=== PATIENT | male | born 1970 | race Hispanic/Latino ===

== ENCOUNTER 2016-11-15 15:09 | Emergency (ER) | payer SELFPAY ==
[2016-11-15 15:28] VITALS: BP 125/93
[2016-11-15 16:00] LABS: Urine Drugs of Abuse Note Disclamer
[2016-11-15 16:03] LABS: Hematocrit 51.3 % (35.5-45.6); Mean Corpuscular HGB Conc 33 % (32-34); Mean Corpuscular Hemoglobin 35 pg (28-32); Mean Corpuscular Volume 106 fl (84-94); Red Blood Count 4.83 M/mm3 (3.65-5.03); Red Cell Distribution Width 14.8 % (13.2-15.2); White Blood Count 6.7 K/mm3 (4.5-11.0)
[2016-11-15 16:20] LABS: Bilirubin,Urine NEG (Negative); Blood,Urine SM (Negative); Ketones,Urine NEG (Negative); Leukocyte Esterase,Urine NEG (Negative); Nitrite,Urine NEG (Negative); Protein,Urine <15 mg/dL mg/dL (Negative); Urobilinogen,Urine < 2.0 mg/dL (<2.0)
[2016-11-15 16:35] LABS: Anion Gap 21 mmol/L; BUN/Creatinine Ratio 11.42; Blood Urea Nitrogen 8 mg/dL (9-20); Calcium 9.3 mg/dL (8.4-10.2); Carbon Dioxide 28 mmol/L (22-30); Chloride 100.9 mmol/L (98-107); Glucose 118 mg/dL (75-100); Potassium 3.8 mmol/L (3.6-5.0); Sodium 146 mmol/L (137-145)
[2016-11-15 16:51] LABS: Blastocytes % (Manual) 0 %; RBC Morphology Normal
[2016-11-15 16:53] LABS: Diff Status Complete; Platelet Estimate Appears Decreased
[2016-11-15 17:00] LABS: Platelet Count 95 K/mm3 (140-440)
--- NOTE | 2016-11-20 19:35 | ED Elopement Review ---
ED Pt Elopement review - Results review Lab results: Laboratory Tests 11/15/16 11/15/16 11/15/16 15:38 15:38 15:38 WBC 6.7 RBC 4.83 Hgb 17.0 H Hct 51.3 H MCV 106 H MCH 35 H MCHC 33 RDW 14.8 Plt Count 95 L [place] % (Auto) [place] Add Manual Diff Complete Total Counted 100 Seg Neutrophils % [place] Seg Neuts % (Manual) 28.0 L Band Neutrophils % 4.0 Lymphocytes % (Manual) 49.0 H Reactive Lymphs % (Man) 1.0 Monocytes % (Manual) 13.0 H Eosinophils % (Manual) 3.0 Basophils % (Manual) 1.0 Metamyelocytes % 1.0 Myelocytes % 0 Promyelocytes % 0 Blast Cells % 0 Nucleated RBC % Not Reportable Seg Neutrophils # Man 1.9 Band Neutrophils # 0.3 Lymphocytes # (Manual) 3.3 Abs React Lymphs (Man) 0.1 Monocytes # (Manual) 0.9 H Eosinophils # (Manual) 0.2 Basophils # (Manual) 0.1 Metamyelocytes # 0.1 Myelocytes # 0.0 Promyelocytes # 0.0 Blast Cells # 0.0 WBC Morphology Not Reportable Hypersegmented Neuts Not Reportable Hyposegmented Neuts Not Reportable Hypogranular Neuts Not Reportable Smudge Cells Not Reportable Toxic Granulation Not Reportable Toxic Vacuolation Not Reportable Dohle Bodies Not Reportable Pelger-Huet Anomaly Not Reportable Deb Rods Not Reportable Platelet Estimate Appears decreased Clumped Platelets Not Reportable Plt Clumps, EDTA Not Reportable Large Platelets Not Reportable Giant Platelets Not Reportable Platelet Satelliting Not Reportable Plt Morphology Comment Not Reportable RBC Morphology Normal Dimorphic RBCs Not Reportable Polychromasia Not Reportable Hypochromasia Not Reportable Poikilocytosis Not Reportable Anisocytosis Not Reportable Microcytosis Not Reportable Macrocytosis Not Reportable Spherocytes Not Reportable Pappenheimer Bodies Not Reportable Sickle Cells Not Reportable Target Cells Not Reportable Tear Drop Cells Not Reportable Ovalocytes Not Reportable Helmet Cells Not Reportable [place] Bodies Not Reportable [place] Rings Not Reportable [place] Cells Not Reportable Bite Cells Not Reportable Crenated Cell Not Reportable Elliptocytes Not Reportable Acanthocytes (Spur) Not Reportable Rouleaux Not Reportable Hemoglobin C Crystals Not Reportable Schistocytes Not Reportable Malaria parasites Not Reportable Harish Bodies Not Reportable Hem Pathologist Commnt No Sodium 146 H Potassium 3.8 Chloride 100.9 Carbon Dioxide 28 Anion Gap 21 BUN 8 L Creatinine 0.7 L Estimated GFR > 60 BUN/Creatinine Ratio 11.42 Glucose 118 H Calcium 9.3 Urine Color Urine Turbidity Urine pH Ur Specific [place] Urine Protein Urine Glucose (UA) Urine Ketones Urine Blood Urine Nitrite Urine Bilirubin Urine Urobilinogen Ur Leukocyte Esterase Urine WBC (Auto) Urine RBC (Auto) U Epithel Cells (Auto) Urine Opiates Screen Urine Methadone Screen Ur Barbiturates Screen Ur Phencyclidine Scrn Ur Amphetamines Screen U Benzodiazepines Scrn Urine Cocaine Screen U Marijuana (THC) Screen Drugs of Abuse Note Plasma/Serum Alcohol 0.49 H 11/15/16 11/15/16 15:46 15:46 WBC RBC Hgb Hct MCV MCH MCHC RDW Plt Count [place] % (Auto) Add Manual Diff Total Counted Seg Neutrophils % Seg Neuts % (Manual) Band Neutrophils % Lymphocytes % (Manual) Reactive Lymphs % (Man) Monocytes % (Manual) Eosinophils % (Manual) Basophils % (Manual) Metamyelocytes % Myelocytes % Promyelocytes % Blast Cells % Nucleated RBC % Seg Neutrophils # Man Band Neutrophils # Lymphocytes # (Manual) Abs React Lymphs (Man) Monocytes # (Manual) Eosinophils # (Manual) Basophils # (Manual) Metamyelocytes # Myelocytes # Promyelocytes # Blast Cells # WBC Morphology Hypersegmented Neuts Hyposegmented Neuts Hypogranular Neuts Smudge Cells Toxic Granulation Toxic Vacuolation Dohle Bodies Pelger-Huet Anomaly Deb Rods Platelet Estimate Clumped Platelets Plt Clumps, EDTA Large Platelets Giant Platelets Platelet Satelliting Plt Morphology Comment RBC Morphology Dimorphic RBCs Polychromasia Hypochromasia Poikilocytosis Anisocytosis Microcytosis Macrocytosis Spherocytes Pappenheimer Bodies Sickle Cells Target Cells Tear Drop Cells Ovalocytes Helmet Cells [place] Bodies [place] Rings [place] Cells Bite Cells Crenated Cell Elliptocytes Acanthocytes (Spur) Rouleaux Hemoglobin C Crystals Schistocytes Malaria parasites Harish Bodies Hem Pathologist Commnt Sodium Potassium Chloride Carbon Dioxide Anion Gap BUN Creatinine Estimated GFR BUN/Creatinine Ratio Glucose Calcium Urine Color Straw Urine Turbidity Clear Urine pH 7.0 Ur Specific [place] 1.004 Urine Protein <15 mg/dl Urine Glucose (UA) Neg Urine Ketones Neg Urine Blood Sm Urine Nitrite Neg Urine Bilirubin Neg Urine Urobilinogen < 2.0 Ur Leukocyte Esterase Neg Urine WBC (Auto) 0.0 Urine RBC (Auto) 1.0 U Epithel Cells (Auto) < 1.0 Urine Opiates Screen Presumptive negative Urine Methadone Screen Presumptive negative Ur Barbiturates Screen Presumptive negative Ur Phencyclidine Scrn Presumptive negative Ur Amphetamines Screen Presumptive negative U Benzodiazepines Scrn Presumptive negative Urine Cocaine Screen Presumptive negative U Marijuana (THC) Screen Presumptive negative Drugs of Abuse Note Disclamer Plasma/Serum Alcohol - Call Back decision Pt Call Back Decision: No action required
== END 2016-11-15 19:35 | disposition left against medical advice (07) ==
LOC: ED 15:09
DX: F10.129 Alcohol abuse with intoxication, unspecified (principal); R07.9 Chest pain, unspecified; Z53.21 Procedure and treatment not carried out due to patient leaving prior to being seen by health care provider
CPT/HCPCS: 36415; 80048; 80307; 81001; 85007; 85025; 93005; 93010; G0480; 80320

== ENCOUNTER 2016-11-16 13:36 | Emergency (ER) | payer SELFPAY ==
[2016-11-16 14:28] LABS: Urine Drugs of Abuse Note Disclamer
[2016-11-16 14:30] LABS: Hematocrit 46.5 % (35.5-45.6); Hemoglobin 15.5 gm/dl (11.8-15.2); Mean Corpuscular HGB Conc 33 % (32-34); Mean Corpuscular Hemoglobin 35 pg (28-32); Mean Corpuscular Volume 106 fl (84-94); Red Blood Count 4.39 M/mm3 (3.65-5.03); Red Cell Distribution Width 14.7 % (13.2-15.2); White Blood Count 5.1 K/mm3 (4.5-11.0)
[2016-11-16 14:39] LABS: Platelet Count 79 K/mm3 (140-440)
[2016-11-16 14:48] LABS: Bilirubin,Urine NEG (Negative); Blood,Urine SM (Negative); Ketones,Urine NEG (Negative); Leukocyte Esterase,Urine NEG (Negative); Nitrite,Urine NEG (Negative); Protein,Urine <15 mg/dL mg/dL (Negative); Urobilinogen,Urine < 2.0 mg/dL (<2.0); WBC,Urine < 1.0 /HPF (0.0-6.0)
[2016-11-16 14:48] LABS: Anion Gap 19 mmol/L; BUN/Creatinine Ratio 11.25; Blood Urea Nitrogen 9 mg/dL (9-20); Calcium 9.5 mg/dL (8.4-10.2); Carbon Dioxide 28 mmol/L (22-30); Chloride 100.2 mmol/L (98-107); Glucose 93 mg/dL (75-100); Potassium 4.3 mmol/L (3.6-5.0); Sodium 143 mmol/L (137-145)
[2016-11-16 16:55] LABS: Basophils % (Manual) 0 % (0.0-1.8); Blastocytes % (Manual) 0 %
[2016-11-16 16:56] LABS: Platelet Estimate Appears Decreased
[2016-11-16 16:57] LABS: Anisocytosis 1+
[2016-11-16 16:58] LABS: Diff Status Complete
--- NOTE | 2016-11-16 19:41 | Emergency Department Report ---
ED Psych HPI - General Chief Complaint: Alcohol Stated Complaint: ALCOHOL ABUSE Time Seen by Provider: 11/16/16 17:56 Source: patient Mode of arrival: Ambulatory - History of Present Illness MD Complaint: other (wants alcohol detox) Associated Psychiatric Symptoms: none History of same: Yes Quality: constant Improves With: none Worsens With: none Context: recent alcohol abuse Associated Symptoms: denies: confusion, headache, shortness of breath, nausea, vomiting, syncope, insomnia Treatments Prior to Arrival: none - Related Data Previous Rx's Medication Instructions Recorded Last Taken Type chlordiazePOXIDE [Librium] 25 mg PO Q8H #30 capsule 11/16/16 Unknown Rx Allergies Allergy/AdvReac Type Severity Reaction Status Date / Time No Known Allergies Allergy Unverified 11/15/16 15:23 ED Review of Systems ROS: Stated complaint: ALCOHOL ABUSE Other details as noted in HPI Comment: All other systems reviewed and negative ED Past Medical Hx - Past Medical History Previous Medical History?: Yes Hx Psychiatric Treatment: Yes (ETOH abuse, Alcoholic for 6 years) - Surgical History Past Surgical History?: No - Social History Smoking Status: Current Every Day Smoker Substance Use Type: Alcohol - Medications Home Medications: Home Medications Medication Instructions Recorded Confirmed Last Taken Type chlordiazePOXIDE [Librium] 25 mg PO Q8H #30 capsule 11/16/16 Unknown Rx ED Physical Exam - General Limitations: No Limitations General appearance: alert, in no apparent distress - Head Head exam: Present: atraumatic, normocephalic - Eye Eye exam: Present: normal appearance - ENT ENT exam: Present: mucous membranes moist - Neck Neck exam: Present: normal inspection - Respiratory Respiratory exam: Present: normal lung sounds bilaterally. Absent: respiratory distress - Cardiovascular Cardiovascular Exam: Present: regular rate, normal rhythm. Absent: systolic murmur, diastolic murmur, rubs, gallop - GI/Abdominal GI/Abdominal exam: Present: soft, normal bowel sounds - Rectal Rectal exam: Present: deferred - Extremities Exam Extremities exam: Present: normal inspection - Back Exam Back exam: Present: normal inspection - Neurological Exam Neurological exam: Present: alert, oriented X3 - Psychiatric Psychiatric exam: Present: normal affect, normal mood - Skin Skin exam: Present: warm, dry, intact, normal color. Absent: rash ED Course Vital Signs 11/16/16 11/16/16 13:55 19:06 Temperature 97.8 F Pulse Rate 85 Respiratory 16 18 Rate Blood Pressure 143/98 O2 Sat by Pulse 95 Oximetry ED Medical Decision Making - Lab Data Result diagrams: 11/16/16 14:17 11/16/16 14:17 - Medical Decision Making will dc after psych does assessment for outpatient detox , will also give prescription for librium Critical care attestation.: If time is entered above; I have spent that time in minutes in the direct care of this critically ill patient, excluding procedure time. ED Disposition Clinical Impression: Alcohol abuse Disposition: DISCHARGED TO HOME OR SELFCARE Is pt being admited?: No Does the pt Need Aspirin: No Condition: Good Instructions: Abuse of Alcohol (ED) Prescriptions: chlordiazePOXIDE [Librium] 25 mg PO Q8H #30 capsule Time of Disposition: 19:41
[2016-11-16 21:03] VITALS: BP 124/71
== END 2016-11-16 22:05 | disposition home or self-care (01) ==
LOC: ED 13:36
DX: F10.10 Alcohol abuse, uncomplicated (principal); F17.200 Nicotine dependence, unspecified, uncomplicated
CPT/HCPCS: 36415; 80048; 80307; 81001; 85007; 85025; 99284; G0480; 80320

== ENCOUNTER 2021-02-21 10:02 | Emergency (ER) | payer SELFPAY ==
[2021-02-21 10:16] VITALS: BP 155/87
== END 2021-02-21 12:05 | disposition left against medical advice (07) ==
LOC: ED 10:02
DX: R07.0 Pain in throat (principal); Z53.21 Procedure and treatment not carried out due to patient leaving prior to being seen by health care provider

== ENCOUNTER 2021-05-30 11:32 | Emergency (ER) | payer SELFPAY ==
[2021-05-30] MEDS ORDERED: LORazepam 2 MG TAB PO PRN ×2 (12:09)
[2021-05-30] MEDS ORDERED: chlordiazePOXIDE 25 MG CAP PO PRN ×2 (12:09)
[2021-05-30] MEDS ORDERED: diphenhydrAMINE 25 MG CAP PO PRN (12:09)
[2021-05-30] MEDS ORDERED: HALOPERIDOL LACTATE 5 MG/1 ML INJ IM PRN (12:09)
[2021-05-30] MEDS ORDERED: ONDANSETRON 4 MG ODT TAB PO PRN (12:09)
[2021-05-30] MEDS ORDERED: LORazepam 2 MG/ML VIAL IM PRN (12:09)
--- NOTE | 2021-05-30 12:11 | Emergency Department Report ---
ED General Adult HPI - General Chief complaint: Psych Stated complaint: SUICIDAL IDEATION Time Seen by Provider: 05/30/21 11:44 Source: patient, police, RN notes reviewed Mode of arrival: Ambulatory Limitations: Other (Alcohol intoxication) - History of Present Illness Initial comments: The patient is a 50-year-old gentleman. He is not known to myself previously. He is brought to the hospital by police department. History obtained by speaking to patient, and reviewing collateral information obtained from nursing team. Apparently, this patient got drunk, consume alcohol, started having hallucinations, and threatening to kill himself. To me, the patient has no recollection of the event. The patient thinks that he fell. He is not certain. At the moment, he is not homicidal suicidal. He complains of left arm/bicep pain, otherwise denies additional physical pain. He does not know how he got the ecchymosis/black and blue on his left arm. At the moment, he denies headache, neck pain, chest pain, abdominal pain, shortness of breath, vomiting, diarrhea, and hallucinations. Please department do not provide additional history at this time. The patient is intoxicated, and therefore, has difficulty describing the qualitative nature of symptoms, exacerbating factors, relieving factors or aggravating factors Location: left, upper extremity - Related Data Home Medications Medication Instructions Recorded Confirmed Last Taken No Known Home Medications [No 05/30/21 05/30/21 Unknown Reported Home Medications] Allergies Allergy/AdvReac Type Severity Reaction Status Date / Time No Known Allergies Allergy Verified 02/21/21 10:11 ED Review of Systems ROS: Stated complaint: SUICIDAL IDEATION Other details as noted in HPI Comment: Unobtainable due to pts medical conditions (Alcohol intoxication) Respiratory: denies: cough Cardiovascular: denies: chest pain Gastrointestinal: denies: abdominal pain Musculoskeletal: myalgia Psychiatric: as per HPI. denies: homicidal thoughts ED Past Medical Hx - Past Medical History Previous Medical History?: Yes Hx Psychiatric Treatment: Yes (ETOH abuse, Alcoholic for 6 years) - Social History Smoking Status: Unknown if ever smoked Substance Use Type: Alcohol - Medications Home Medications: Home Medications Medication Instructions Recorded Confirmed Last Taken Type No Known Home Medications [No 05/30/21 05/30/21 Unknown History Reported Home Medications] ED Physical Exam - General Limitations: Other (Intoxication) General appearance: appears intoxicated - Head Head exam: Present: atraumatic, normocephalic - Eye Eye exam: Present: normal appearance, EOMI. Absent: nystagmus - ENT ENT exam: Present: normal exam, normal orophraynx, mucous membranes moist, normal external ear exam - Neck Neck exam: Present: normal inspection, full ROM. Absent: tenderness, meningismus - Respiratory Respiratory exam: Present: normal lung sounds bilaterally, other (There is a left lateral thorax ecchymosis). Absent: respiratory distress, wheezes, rales, rhonchi, stridor - Cardiovascular Cardiovascular Exam: Present: regular rate, normal rhythm, normal heart sounds. Absent: bradycardia, tachycardia, irregular rhythm, systolic murmur, diastolic murmur, rubs, gallop - GI/Abdominal GI/Abdominal exam: Present: soft. Absent: distended, tenderness, guarding, rebound, rigid, pulsatile mass - Rectal Rectal exam: Present: deferred - Extremities Exam Extremities exam: Present: full ROM, other (2+ pulses noted in the bilateral upper and lower extremities. There is no palpable cord. negative Homans sign. Muscular compartments are soft. The pelvis is stable.). Absent: normal inspection (There is a left bicep ecchymosis), calf tenderness - Back Exam Back exam: Present: normal inspection. Absent: tenderness, CVA tenderness (R), CVA tenderness (L), paraspinal tenderness, vertebral tenderness - Neurological Exam Neurological exam: Present: altered (Patient is intoxicated. The patient follows commands.), other (No facial droop. Tongue midline. Extraocular movements intact bilaterally. Facial sensation intact to light touch in V1, V2, V3 distribution bilaterally. 5 and a 5 strength in 4 extremities. Sensation intact to light touch in 4 extremities.) - Psychiatric Psychiatric exam: Present: anxious. Absent: homicidal ideation - Skin Skin exam: Present: warm, ecchymosis ED Course Vital Signs 05/30/21 05/30/21 05/30/21 11:34 11:35 11:51 Temperature 98.6 F Pulse Rate 86 89 Respiratory 16 18 Rate Blood Pressure 126/96 O2 Sat by Pulse 95 96 100 Oximetry - Reevaluation(s) Reevaluation #1: 05/30/21 13:00 Differential diagnosis, including but not limited to: Alcohol intoxication, alcohol induced mood disorder, intracranial injury, cervical spine injury, electrolyte derangement, pneumonia, left bicep/arm ecchymosis Assessment and plan: 50-year-old gentleman, who was afebrile, with reassuring vital signs, who was intoxicated. Patient is placed on 2013 status for intoxication. Diagnostic laboratory studies ordered, to exclude time sensitive toxicologic ingestion. X-ray of the chest will be ordered given left arm ecchymosis, and left lateral thorax ecchymosis. He is saturating 100% on room air, and has clear lung sounds. Mental health consultation is requested. Reassess after initial data points. 05/30/21 13:48 Laboratory studies demonstrated evidence of chronic alcoholism. Noncontrast CT scan of the brain and cervical spine pending. Patient has no crackles or rales. I do not suspect CHF clinically. X-ray of the chest was obtained because of left anterior thorax ecchymosis, and to evaluate for posttraumatic sequelae. Potassium supplementation is ordered. 05/30/21 14:04 Contacted patient's , Ms. Heather Christopher; [phone]. She reports that the patient is a chronic alcoholic, and drinks multiple pints a day. He has a ttempted sober living in the past, and has been sober for as long as 38 days. He is not COVID-19 vaccinated, he does not take prescription medications that she is aware of, and he has no known medication allergies. She states that she recently acquired [employer] insurance, and she will reach out to her insurance company and see if she can place Mr. Christopher on her policy, to assist with inpatient detox. I discussed all pertinent findings with the patient's . She verbalized understanding. Leukopenia and thrombocytopenia likely secondary to chronic alcoholism. Transaminitis likely secondary to chronic alcoholism. Ms. Christopher would like to be called back by the psychiatry team after they have made their initial evaluation and recommendations. Holding orders placed. At this point in time, this patient does not appear to have an immediate medical contraindication to psychiatric admission, evaluation, consultation and placement/placement in detox. I anticipate that once the patient eloisa up, if he does not enter DTs or experiences severe withdrawal symptoms, he may elect to be discharged. Ultimate disposition as per the psychiatry team, and also as per patient once he becomes clinically sober. ED Medical Decision Making - Lab Data Result diagrams: 05/30/21 12:24 05/30/21 12:24 Vital Signs 05/30/21 05/30/21 05/30/21 11:34 11:35 11:51 Temperature 98.6 F Pulse Rate 86 89 Respiratory 16 18 Rate Blood Pressure 126/96 O2 Sat by Pulse 95 96 100 Oximetry Lab Results 05/30/21 05/30/21 05/30/21 Range/Units 12:24 12:24 12:24 WBC 3.8 L (4.5-11.0) K/mm3 RBC 4.52 (3.65-5.03) M/mm3 Hgb 15.4 H (11.8-15.2) gm/dl Hct 45.5 (35.5-45.6) % MCV 101 H (84-94) fl MCH 34 H (28-32) pg MCHC 34 (32-34) % RDW 14.6 (13.2-15.2) % Plt Count 95 L (140-440) K/mm3 [place] % (Auto) 18.7 H (0.0-7.3) % Eos % (Auto) 3.6 (0.0-4.3) % [place] # (Auto) 0.7 (0.0-0.8) K/mm3 Eos # (Auto) 0.1 (0.0-0.4) K/mm3 Baso # (Auto) 0.0 (0.0-0.1) K/mm3 Seg Neutrophils % 25.2 L (40.0-70.0) % Seg Neutrophils # 0.9 L (1.8-7.7) K/mm3 PT 12.7 (12.2-14.9) Sec. INR 0.86 L (0.87-1.13) Sodium 146 H (137-145) mmol/L Potassium 3.4 L (3.6-5.0) mmol/L Chloride 106.4 (98-107) mmol/L Carbon Dioxide 22 (22-30) mmol/L Anion Gap 21 mmol/L BUN 8 L (9-20) mg/dL Creatinine 0.8 (0.8-1.3) mg/dL Estimated GFR > 60 ml/min BUN/Creatinine Ratio 10 % Glucose 104 H (75-100) mg/dL Calcium 8.8 (8.4-10.2) mg/dL Magnesium 1.90 (1.7-2.3) mg/dL Total Bilirubin 0.20 (0.1-1.2) mg/dL AST 98 H (5-40) units/L ALT 59 H (7-56) units/L Alkaline Phosphatase 66 (35-129) units/L Total Protein 7.3 (6.3-8.2) g/dL Albumin 4.1 (3.9-5) g/dL Albumin/Globulin Ratio 1.3 % Salicylates (2.8-20.0) mg/dL Acetaminophen (10.0-30.0) ug/mL Plasma/Serum Alcohol (0-0.07) % 05/30/21 05/30/21 05/30/21 Range/Units 12:24 12:24 12:24 WBC (4.5-11.0) K/mm3 RBC (3.65-5.03) M/mm3 Hgb (11.8-15.2) gm/dl Hct (35.5-45.6) % MCV (84-94) fl MCH (28-32) pg MCHC (32-34) % RDW (13.2-15.2) % Plt Count (140-440) K/mm3 [place] % (Auto) (0.0-7.3) % Eos % (Auto) (0.0-4.3) % [place] # (Auto) (0.0-0.8) K/mm3 Eos # (Auto) (0.0-0.4) K/mm3 Baso # (Auto) (0.0-0.1) K/mm3 Seg Neutrophils % (40.0-70.0) % Seg Neutrophils # (1.8-7.7) K/mm3 PT (12.2-14.9) Sec. INR (0.87-1.13) Sodium (137-145) mmol/L Potassium (3.6-5.0) mmol/L Chloride (98-107) mmol/L Carbon Dioxide (22-30) mmol/L Anion Gap mmol/L BUN (9-20) mg/dL Creatinine (0.8-1.3) mg/dL Estimated GFR ml/min BUN/Creatinine Ratio % Glucose (75-100) mg/dL Calcium (8.4-10.2) mg/dL Magnesium (1.7-2.3) mg/dL Total Bilirubin (0.1-1.2) mg/dL AST (5-40) units/L ALT (7-56) units/L Alkaline Phosphatase (35-129) units/L Total Protein (6.3-8.2) g/dL Albumin (3.9-5) g/dL Albumin/Globulin Ratio % Salicylates < 0.3 L (2.8-20.0) mg/dL Acetaminophen 5.0 L (10.0-30.0) ug/mL Plasma/Serum Alcohol 0.44 H (0-0.07) % Vital Signs 05/30/21 05/30/21 05/30/21 11:34 11:35 11:51 Temperature 98.6 F Pulse Rate 86 89 Respiratory 16 18 Rate Blood Pressure 126/96 O2 Sat by Pulse 95 96 100 Oximetry - Radiology Data Radiology results: pending, report reviewed, image reviewed interpreted by me: 1 view x-ray of the chest, interpreted by myself, shows clear lungs, no pneumothorax, unremarkable bony anatomy, no obvious infiltrate XR chest 1V ap INDICATION / CLINICAL INFORMATION: Alcohol Intoxication. COM PARISON: None available. FINDINGS: SUPPORT DEVICES: None. HEART /PULMONARY VASCULATURE: No significant abnormality. LUNGS / PLEURA: Mild diffuse increased interstitial markings. No focal airspace consolidation. No sizable pleural effusion. No pneumothorax. ADDITIONAL FINDINGS: No significant additional findings. IMPRESSION: Probable mild interstitial edema. No focal airspace disease. Signer Name: Brendan Mcnair MD Signed: 05/30/2021 12:06 PM Workstation Name: [email or web address] CT cervical spine wo con INDICATION / CLINICAL INFORMATION: 50 years Male; etoh intox, fall. TECHNIQUE: Axial CT images of the cervical spine were obtained. Sagittal and coronal reformatted images were produced. All CT scans at this location are performed using CT dose reduction for ALARA by means of automated e xposure control. COMPARISON: None available. FINDINGS: POST-SURGICAL CHANGES: None. ALIGNMENT: Straightening of the cervical spine noted, which may be related to patient positioning. VERTEBRAE: No signs of fracture. Vertebral bodies are grossly normal in height throughout. Mild osseous foraminal narrowing seen bilaterally at C6-7 from uncinate hypertrophy and on the left at C5-6. INTRAVERTEBRAL DISCS: Disc space narrowing seen at C5-6 and C6-7 where there is anterior and posterior spondylosis. Mild disc disease seen at these levels. No significant canal stenosis appreciated. PARASPINAL SOFT TISSUES: No significant abnormality. ADDITIONAL FINDINGS: None. IMPRESSION: 1. No signs of acute bony trauma to the cervical spine. Signer Name: Rishabh Null MD, III Signed: 05/30/2021 12:50 PM Workstation Name: [id number] CT head/brain wo con INDICATION / CLINICAL INFORMATION: 50 years Male; Alcohol Intoxication. TECHNIQUE: Routine CT head without contrast. All CT scans at this location are performed using CT dose reduction for ALARA by means of automated exposure control. COMPARISON: None. FINDINGS: BRAIN / INTRACRANIAL CONTENTS: No acute hemorrhage, mass effect, midline shift, hydrocephalus, or acute, large territorial infarct. No signs of significant atrophy or chronic infarct. No significant white matter abnormality seen. CRANIOCERVICAL JUNCTION: No significant abnormality. ORBITS: No significant abnormality of visualized orbits. SINUSES / MASTOIDS: Mucous retention cyst/polyp is seen in the right maxillary antrum. ADDITIONAL FINDINGS: None. IMPRESSION: 1. No focal mass, hemorrhage, hydrocephalus, or acute, large territorial infarct. Signer Name: Rishabh Null MD, III Signed: 05/30/2021 12:46 PM Workstation Name: [employer]- [id number] Critical care attestation.: If time is entered above; I have spent that time in minutes in the direct care of this critically ill patient, excluding procedure time. ED Disposition Clinical Impression: Alcohol intoxication, Fall, Arm bruise, Encounter for behavioral health screening, Hypokalemia, Leukopenia, Thrombocytopenia, Transaminitis, Alcohol de pendence Disposition: 30 STILL A PATIENT Is pt being admited?: No Does the pt Need Aspirin: No Condition: Stable Referrals: PRIMARY CARE, [Primary Care Provider] - 3-5 Days
[2021-05-30 13:04] LABS: Hematocrit 45.5 % (35.5-45.6); Hemoglobin 15.4 gm/dl (11.8-15.2); Mean Corpuscular HGB Conc 34 % (32-34); Mean Corpuscular Volume 101 fl (84-94); Red Blood Count 4.52 M/mm3 (3.65-5.03); Red Cell Distribution Width 14.6 % (13.2-15.2)
[2021-05-30 13:08] LABS: Platelet Count 95 K/mm3 (140-440)
[2021-05-30 13:10] LABS: Eosinophils # (Auto) 0.1 K/mm3 (0.0-0.4); Eosinophils % (Auto) 3.6 % (0.0-4.3); Monocytes # (Auto) 0.7 K/mm3 (0.0-0.8); Monocytes % (Auto) 18.7 % (0.0-7.3)
--- NOTE | 2021-05-30 13:10 | XRay Report ---
XR chest 1V ap INDICATION / CLINICAL INFORMATION: Alcohol Intoxication. COMPARISON: None available. FINDINGS: SUPPORT DEVICES: None. HEART /PULMONARY VASCULATURE: No significant abnormality. LUNGS / PLEURA: Mild diffuse increased interstitial markings. No focal airspace consolidation. No siz able pleural effusion. No pneumothorax. ADDITIONAL FINDINGS: No significant additional findings. IMPRESSION: Probable mild interstitial edema. No focal airspace disease. Signer Name: Brendan Mcnair MD Signed: 05/30/2021 1:06 PM Workstation Name: [id number]
[2021-05-30 13:12] LABS: INR 0.86 (0.87-1.13)
[2021-05-30 13:14] LABS: Alanine Aminotransferase 59 units/L (7-56); Albumin 4.1 g/dL (3.9-5); BUN/Creatinine Ratio 10; Blood Urea Nitrogen 8 mg/dL (9-20); Calcium 8.8 mg/dL (8.4-10.2); Hemolysis Index 9
[2021-05-30] MEDS ORDERED: POTASSIUM CHLORIDE ER 20 MEQ TAB PO ONE ×2 (13:47→16:04)
--- NOTE | 2021-05-30 13:50 | Cat Scan Report ---
CT head/brain wo con INDICATION / CLINICAL INFORMATION: 50 years Male; Alcohol Intoxication. TECHNIQUE: Routine CT head without contrast. All CT scans at this location are performed using CT dos e reduction for ALARA by means of automated exposure control. COMPARISON: None. FINDINGS: BRAIN / INTRACRANIAL CONTENTS: No acute hemorrhage, mass effect, midline shift, hydrocephalus, or acu te, large territorial infarct. No signs of significant atrophy or chronic infarct. No significant whi te matter abnormality seen. CRANIOCERVICAL JUNCTION: No significant abnormality. ORBITS: No significant abnormality of visualized orbits. SINUSES / MASTOIDS: Mucous retention cyst/polyp is seen in the right maxillary antrum. ADDITIONAL FINDINGS: None. IMPRESSION: 1. No focal mass, hemorrhage, hydrocephalus, or acute, large territorial infarct. Signer Name: Rishabh Null MD, III Signed: 05/30/2021 1:46 PM Workstation Name: [id number]
--- NOTE | 2021-05-30 13:54 | Cat Scan Report ---
CT cervical spine wo con INDICATION / CLINICAL INFORMATION: 50 years Male; etoh intox, fall. TECHNIQUE: Axial CT images of the cervical spine were obtained. Sagittal and coronal reformatted images were pr oduced. All CT scans at this location are performed using CT dose reduction for ALARA by means of aut omated exposure control. COMPARISON: None available. FINDINGS: POST-SURGICAL CHANGES: None. ALIGNMENT: Straightening of the cervical spine noted, which may be related to patient positioning. VERTEBRAE: No signs of fracture. Vertebral bodies are grossly normal in height throughout. Mild osseous foraminal narrowing seen bilaterally at C6-7 from uncinate hypertrophy and on the left a t C5-6. INTRAVERTEBRAL DISCS: Disc space narrowing seen at C5-6 and C6-7 where there is anterior and posterio r spondylosis. Mild disc disease seen at these levels. No significant canal stenosis appreciated. PARASPINAL SOFT TISSUES: No significant abnormality. ADDITIONAL FINDINGS: None. IMPRESSION: 1. No signs of acute bony trauma to the cervical spine. Signer Name: Rishabh Null MD, III Signed: 05/30/2021 1:50 PM Workstation Name: [id number]
[2021-05-30] MEDS ORDERED: DEXTROSE 50% IN WATER (25GM) 50 ML VIAL IV PRN (14:09)
[2021-05-30 15:33] LABS: Bilirubin,Urine NEG (Negative); Blood,Urine SM (Negative); Color,Urine Yellow (Yellow); Protein,Urine <15 mg/dL mg/dL (Negative); Urobilinogen,Urine < 2.0 mg/dL (<2.0); WBC,Urine < 1.0 /HPF (0.0-6.0)
[2021-05-30 15:41] LABS: Amphetamine Screen,Urine Negative; Benzodiazepines Screen,Urine Negative; Cannabinoid Screen,Urine Negative; Cocaine Screen,Urine Negative; Methadone Screen,Urine Negative; Opiate Screen,Urine Negative
[2021-05-30 16:15] LABS: Total Cells Counted 100
[2021-05-30 16:17] LABS: Anisocytosis 1+; Platelet Estimate Consistent w Auto; Spherocytes 1+
--- NOTE | 2021-05-31 09:14 | Consultation ---
History of Present Illness - Reason for Consult Consult date: 05/31/21 Reason for consult: ETOH - History of Present Psychiatric Illness The patient was seen today. He is calm and cooperative. He is a/o x 3. He says he came to the hospital because he has a problem with drinking. The patient says he drinks 2 to 3 pints of vodka daily. He says his last drink was maybe 72 hours ago. The patient says he's been to rehab once but it didn't work. He denies seeing a psychiatrist in the past but says he's seen a therapist for marriage counseling. The patient also denies SI/HI. He says "alcohol is my problem." The patient also denies hallucinations of any kind. He also denies being on any psych meds. He denies any problems with his sleep cycle or his appetite. PAST PSYCHIATRIC HISTORY: Diagnoses: ETOH dependence Suicide attempts or Self-harm behavior: Denies Prior psychiatric hospitalizations: Denies Substance Abuse history: ETOH Previous psychiatric medications tried: Denies Outpatient treatment: Denies PAST MEDICAL HISTORY: None reported or document Family Psychiatric History: None reported or documented SOCIAL HISTORY Marital Status: Living Arrangements: with spouse Employment Status: self employed Access to guns/weapons: Denies Education: History of Abuse: Denies Legal History: Denies REVIEW OF SYSTEMS Constitutional: Negative for weight loss ENT: Negative for stridor Respiratory: Negative for cough or hemoptysis All other systems reviewed and are negative MENTAL STATUS EXAMINATION General Appearance and Behavior: Age appropriate, good hygiene, wearing appropriate clothes. calm, cooperative Cooperation: cooperative Psychomotor Behavior: Psychomotor normal Mood: okay Affect and affective range: congruent with stated mood Thought Process: goal directed Thought Content: None Speech: Normal tone and pace Suicidal Ideation: Denies Homicidal Ideation: Denies Hallucinations: Denies Delusions: none elicited Impulse Control: Limited Insight and Judgment: Limited Memory: limited Attention: Attentive Orientation: alert and oriented Assessment and Plan (1) Alcohol Dependence Treatment Plan No prescriptions given at this time Sitter: per primary Medical: per primary Disposition: Do not recommend acute psychiatric inpatient treatment. The patient understands that if SI/HI or any fear of endangerment are to arise he is to seek immediate assistance. The telephone ad taker to give the patient resources for rehab, and further discuss safety plan The patient to abstain from all alcohol He is to follow up with outpatient psych or primary in 7 to 14 days upon discharge Will sign off. Thanks. Case staffed with Dr. Garcia Medications and Allergies Allergies Allergy/AdvReac Type Severity Reaction Status Date / Time No Known Allergies Allergy Verified 02/21/21 10:11 Home Medications Medication Instructions Recorded Confirmed Last Taken Type No Known Home Medications [No 05/30/21 05/30/21 Unknown History Reported Home Medications] Active Meds: Active Medications Chlordiazepoxide HCl (Chlordiazepoxide 25 Mg Cap) 50 mg PO Q1HR PRN PRN Reason: CIWA-Ar 8-15 Chlordiazepoxide HCl (Chlordiazepoxide 25 Mg Cap) 100 mg PO Q1HR PRN PRN Reason: CIWA-Ar 16-25 Dextrose (Dextrose 50% In Water (25gm) 50 Ml Vial) 50 gm IV Q30MIN PRN; Protocol PRN Reason: Hypoglycemia Diphenhydramine HCl (Diphenhydramine 25 Mg Cap) 50 mg PO QHS PRN PRN Reason: Insomnia Haloperidol Lactate (Haloperidol Lactate 5 Mg/1 Ml Inj) 5 mg IM Q6HR PRN PRN Reason: Agitation Lorazepam (Lorazepam 2 Mg/Ml Vial) 2 mg IM Q4HR PRN PRN Reason: Agitation Lorazepam (Lorazepam 2 Mg Tab) 2 mg PO Q1HR PRN PRN Reason: CIWA-Ar 8-15 Lorazepam (Lorazepam 2 Mg Tab) 4 mg PO Q1HR PRN PRN Reason: CIWA-Ar 16-25 Multivitamins (Multivitamins ,Therapeutic Tab) 1 each PO QDAY [facility] Ondansetron HCl (Ondansetron 4 Mg Odt Tab) 4 mg PO Q6HR PRN PRN Reason: Nausea Last Admin: 05/30/21 17:08 Dose: 4 mg Documented by: Potassium Chloride (Potassium Chloride Er 20 Meq Tab) 40 meq PO QDAY [facility] Thiamine HCl (Thiamine 100 Mg Tab) 100 mg PO QDAY [facility] Mental Status Exam - Vital signs Last Vital Signs Temp 98.0 F 05/31/21 03:22 Pulse 53 L 05/31/21 03:22 Resp 16 05/31/21 03:22 BP 125/75 05/31/21 03:22 Pulse Ox 95 05/31/21 03:22 Results Result Diagrams: 05/30/21 12:24 05/30/21 12:24 Abnormal lab results 05/30/21 05/30/21 05/30/21 Range/Units 12:24 12:24 12:24 WBC 3.8 L (4.5-11.0) K/mm3 Hgb 15.4 H (11.8-15.2) gm/dl MCV 101 H (84-94) fl MCH 34 H (28-32) pg Plt Count 95 L (140-440) K/mm3 [place] % (Auto) 18.7 H (0.0-7.3) % Seg Neutrophils % 25.2 L (40.0-70.0) % Seg Neuts % (Manual) 24.0 L (40.0-70.0) % Lymphocytes % (Manual) 55.0 H (13.4-35.0) % Monocytes % (Manual) 16.0 H (0.0-7.3) % Basophils % (Manual) 2.0 H (0.0-1.8) % Seg Neutrophils # 0.9 L (1.8-7.7) K/mm3 Seg Neutrophils # Man 0.9 L (1.8-7.7) K/mm3 INR 0.86 L (0.87-1.13) Sodium 146 H (137-145) mmol/L Potassium 3.4 L (3.6-5.0) mmol/L BUN 8 L (9-20) mg/dL Glucose 104 H (75-100) mg/dL AST 98 H (5-40) units/L ALT 59 H (7-56) units/L Salicylates (2.8-20.0) mg/dL Acetaminophen (10.0-30.0) ug/mL Plasma/Serum Alcohol (0-0.07) % 05/30/21 05/30/21 05/30/21 Range/Units 12:24 12:24 12:24 WBC (4.5-11.0) K/mm3 Hgb (11.8-15.2) gm/dl MCV (84-94) fl MCH (28-32) pg Plt Count (140-440) K/mm3 [place] % (Auto) (0.0-7.3) % Seg Neutrophils % (40.0-70.0) % Seg Neuts % (Manual) (40.0-70.0) % Lymphocytes % (Manual) (13.4-35.0) % Monocytes % (Manual) (0.0-7.3) % Basophils % (Manual) (0.0-1.8) % Seg Neutrophils # (1.8-7.7) K/mm3 Seg Neutrophils # Man (1.8-7.7) K/mm3 INR (0.87-1.13) Sodium (137-145) mmol/L Potassium (3.6-5.0) mmol/L BUN (9-20) mg/dL Glucose (75-100) mg/dL AST (5-40) units/L ALT (7-56) units/L Salicylates < 0.3 L (2.8-20.0) mg/dL Acetaminophen 5.0 L (10.0-30.0) ug/mL Plasma/Serum Alcohol 0.44 H (0-0.07) % All other labs normal.
[2021-05-31] MEDS ORDERED: MULTIVITAMINS ,THERAPEUTIC TAB PO SCH (10:00)
[2021-05-31] MEDS ORDERED: THIAMINE 100 MG TAB PO SCH (10:00)
[2021-05-31] MEDS ORDERED: POTASSIUM CHLORIDE ER 20 MEQ TAB PO SCH (10:00)
[2021-05-31 10:19] VITALS: BP 145/67
--- NOTE | 2021-05-31 11:12 | Event Note ---
Patient cleared by psychiatry team for discharge.
== END 2021-05-31 11:16 | disposition home or self-care (01) ==
LOC: ED 11:32
DX: S40.029A Contusion of unspecified upper arm, initial encounter (principal); F10.129 Alcohol abuse with intoxication, unspecified; E87.6 Hypokalemia; D72.819 Decreased white blood cell count, unspecified; R74.01 Elevation of levels of liver transaminase levels; D69.6 Thrombocytopenia, unspecified; R41.82 Altered mental status, unspecified; Z13.30 Encounter for screening examination for mental health and behavioral disorders, unspecified; Z20.822 Contact with and (suspected) exposure to COVID-19; W19.XXXA Unspecified fall, initial encounter; Y93.89 Activity, other specified; Y92.89 Other specified places as the place of occurrence of the external cause; Y99.8 Other external cause status
CPT/HCPCS: 36415; 70450; 71045; 72125; 80053; 80307; 81001; 83735; 85007; 85025; 85610; 99285; U0003; 80320; J3490; G0480; Q0162